=== PATIENT | female | born 1985 | race Caucasian/White ===

== ENCOUNTER 2023-02-05 23:37 | Emergency (ER) | payer BC ==
[~2023-02-05] VITALS: Ht 165.1 cm; Wt 71.7 kg
[2023-02-05 23:42] VITALS: BP 149/97; PULSE 114; RESP 20; TEMP 97.5; O2SAT 100
[2023-02-05] MEDS ORDERED: TORADOL IM STA (23:51)
[2023-02-06] MEDS ORDERED: TORADOL ONE
[2023-02-06 00:09] VITALS: BP 130/78; PULSE 116; RESP 20; O2SAT 96
[2023-02-06 00:34] VITALS: BP 122/89; PULSE 1; PULSE 107; RESP 20; O2SAT 96
[2023-02-06 00:46] VITALS: BP 124/76; PULSE 101; RESP 20; O2SAT 96
[2023-02-06] MEDS ORDERED: ULTRAM PO STA (01:02)
[2023-02-06] MEDS ORDERED: ROBAXIN PO STA (01:02)
[2023-02-06] MEDS ORDERED: ROBAXIN ONE ×2 (01:05→01:06)
[2023-02-06] MEDS ORDERED: ULTRAM ONE (01:05)
[2023-02-06 01:16] VITALS: BP 109/76; PULSE 96; RESP 20; O2SAT 96
== END 2023-02-06 01:26 | disposition home or self-care (01) ==
LOC: ER 23:37
DX: S20.212A Contusion of left front wall of thorax, initial encounter (principal); W18.2XXA Fall in (into) shower or empty bathtub, initial encounter; Y93.E1 Activity, personal bathing and showering; Y92.89 Other specified places as the place of occurrence of the external cause; Y99.8 Other external cause status
CPT/HCPCS: 99284; 71111; 96372; J2800 ×2; J1885